=== PATIENT | male | born 1940 | race Caucasian/White ===

== ENCOUNTER 2019-08-29 05:41 | Day surgery (SDC) | payer MEDICARE ==
[2019-08-27 10:55] LABS: BASOPHILS % (AUTO) 0.5 % (0.0-5.0); HEMATOCRIT 42.4 % (42-54); LYMPHOCYTES % (AUTO) 21.3 % (21.0-51.0); MEAN CORPUSCULAR HEMOGLOBIN 31.9 pg (27.0-33.0); MEAN CORPUSCULAR HGB CONC 33.7 g/dL (32.0-36.0); MEAN CORPUSCULAR VOLUME 94.6 fL (79-99); MONOCYTES % (AUTO) 13.1 % (3.0-13.0); NEUTROPHILS % (AUTO) 63.8 % (40.0-77.0); PLATELET COUNT (AUTO) 221 K/uL (130-400); RED BLOOD CELL COUNT(AUTO) 4.48 MIL/uL (4.50-6.20); RED CELL DISTRIBUTION WIDTH 12.8 % (11.0-15.5); WHITE BLOOD COUNT (AUTO) 6.2 K/uL (4.8-10.8)
[2019-08-27 11:04] VITALS: BP 178/78
[2019-08-27 11:07] LABS: CREATININE 0.9 mg/dL (0.5-1.5); POTASSIUM 4.5 mmol/L (3.5-5.1)
[2019-08-27 11:55] LABS: INR 1.09 (0.85-1.15); PARTIAL THROMBOPLASTIN TIME 27.1 SEC (26.3-35.5); PROTHROMBIN TIME 11.4 SEC (9.6-11.6)
[~2019-08-29] VITALS: Ht 177.8 cm; Wt 86.2 kg
[~2019-08-29 05:41] MED LIST: AEC81 PO; BRIM5DRO4 OS; CHOL500062 PO; CRAN300T PO; DORZ10DR19 OS; GARL1TAB2 PO; LATA7.5D OS; LISI40TA4 PO; MAGN400T40 PO; MELA5TAB14 PO; METF-444 PO; METO50TA18 PO; MULT1TAB70 PO; NIAC500T22 PO; OMEG1CAP83 PO; SIMV-43 PO
[2019-08-29 06:38] LABS: POTASSIUM 4.5 mmol/L (3.5-5.1)
[2019-08-29 06:42] VITALS: BP 157/75
[2019-08-29] MEDS ORDERED: BLUE500T PO (07:37)
[2019-08-29] MEDS ORDERED: HYDR12.54 PO (07:37)
--- NOTE | 2019-08-29 10:00 | NUR ---
PT NA LEVEL STILL LOW TODAY ON REPEAT. DR. DEAL CANCELLED CASE, PT WILL FOLLOW UP WITH DR. NICOLAS.
[2019-08-29 10:01] LABS: CHLORIDE,URINE RANDOM 108 mmol/L (110-250); POTASSIUM,URINE RANDOM 57 mmol/L (25-125); SODIUM,URINE RANDOM 82 mmol/l (40-220)
== END 2019-08-29 10:13 | disposition home or self-care (01) ==
LOC: DAH 05:41
PROVIDERS: ATTEND Internal Medicine Cardiovascular Disease
DX: E87.1 Hypo-osmolality and hyponatremia (principal); I49.3 Ventricular premature depolarization; I42.9 Cardiomyopathy, unspecified; Z53.8 Procedure and treatment not carried out for other reasons; Z79.82 Long term (current) use of aspirin; Z79.899 Other long term (current) drug therapy; Z82.49 Family history of ischemic heart disease and other diseases of the circulatory system; Z83.3 Family history of diabetes mellitus
CPT/HCPCS: 36415 ×2; 80048 ×2; 80051; 83935; 85025; 85610; 85730; A4215; A4216; A4221; A4222; A4223 ×3; A4606; A4663